=== PATIENT | female | born 2000 | race Caucasian/White ===

== ENCOUNTER 2023-05-18 17:04 | Emergency (ER) | payer OTHER ==
[~2023-05-18] VITALS: Ht 167.6 cm; Wt 47.1 kg
[2023-05-18 17:06] VITALS: BP 130/63; TEMP 97.5; O2SAT 98
[2023-05-18] MEDS ORDERED: BENZOCAINE 20% GEL 9GM TUBE (ANBESOL MAX STRENGTH) TOP ONE (17:55)
[2023-05-18] MEDS ORDERED: KETOROLAC TROMETHAMINE 10 MG TAB PO ONE (18:40)
[2023-05-18] MEDS ORDERED: KETO10TAB PO (18:58)
[2023-05-18] MEDS ORDERED: AMOX875T2 PO (18:58)
[2023-05-18] MEDS ORDERED: CHLO0.124 MT (18:58)
== END 2023-05-18 19:11 | disposition home or self-care (01) ==
LOC: M ED 17:04
DX: K02.9 Dental caries, unspecified (principal); K05.00 Acute gingivitis, plaque induced; K08.89 Other specified disorders of teeth and supporting structures; F17.200 Nicotine dependence, unspecified, uncomplicated; J45.909 Unspecified asthma, uncomplicated; Z79.2 Long term (current) use of antibiotics; Z79.899 Other long term (current) drug therapy

== ENCOUNTER 2024-08-16 15:55 | Emergency (ER) | payer OTHER ==
[~2024-08-16] VITALS: Ht 157.5 cm; Wt 47.3 kg
[~2024-08-16 15:55] MED LIST: AMOX875T2 PO; CHLO0.124 MT; KETO10TAB PO
[2024-08-16 15:58] VITALS: TEMP 99.2; O2SAT 96
[2024-08-16] MEDS ORDERED: HYDR-3363 (16:07)
[2024-08-16 16:30] VITALS: BP 114/72
== END 2024-08-16 19:22 | disposition home or self-care (01) ==
LOC: M ED 15:55
DX: F19.10 Other psychoactive substance abuse, uncomplicated (principal); F10.10 Alcohol abuse, uncomplicated; Z79.899 Other long term (current) drug therapy